=== PATIENT | male | born 1995 | race Caucasian/White ===

== ENCOUNTER → 2016-09-20 | Outpatient (REF) | LOC: WSOH 09:38 | DX: Z11.1 Encounter for screening for respiratory tuberculosis (principal) ==

== ENCOUNTER → 2016-09-22 | Outpatient (REF) | LOC: WSOH 10:03 → WSPT 11:00 | DX: Z02.1 Encounter for pre-employment examination (principal) ==

== ENCOUNTER → 2016-09-26 | Outpatient (REF) | LOC: WSOH 15:15 | DX: Z02.89 Encounter for other administrative examinations (principal) ==

== ENCOUNTER → 2016-12-05 | Outpatient (REF) | LOC: WSOH 12:15 | DX: Z02.89 Encounter for other administrative examinations (principal) ==